=== PATIENT | male | born 1960 | race Caucasian/White ===

== ENCOUNTER → 2017-06-13 | Outpatient (REF) | payer OTHER ==
[2017-06-13 19:44] LABS: ALBUMIN 3.7 GM/DL (3.2-5.2); ALBUMIN/GLOBULIN RATIO 1.28 (1.00-1.93); ALKALINE PHOSPHATASE 81 U/L (45-117); ALT/SGPT 38 U/L (12-78); ANION GAP 6 MEQ/L (8-16); AST/SGOT 17 U/L (15-37); BILIRUBIN,TOTAL 0.5 MG/DL (0.2-1.0); BLOOD UREA NITROGEN 12 MG/DL (7-18); CALCIUM LEVEL 8.8 MG/DL (8.5-10.1); CARBON DIOXIDE LEVEL 27 MEQ/L (21-32); CHLORIDE LEVEL 103 MEQ/L (98-107); CHOLESTEROL LEVEL 250 MG/DL (<200); CREATININE FOR GFR 0.85 MG/DL (0.70-1.30); GLOMERULAR FILTRATION RATE > 60.0 (>56); GLUCOSE, FASTING 106 MG/DL (70-105); POTASSIUM SERUM 4.1 MEQ/L (3.5-5.1); SODIUM LEVEL 136 MEQ/L (136-145); TOTAL PROTEIN 6.6 GM/DL (6.4-8.2); TRIGLYCERIDES LEVEL 319 MG/DL (<150)
== END ==
LOC: M SFHCCAPE 13:18
PROVIDERS: ATTEND Physician Assistant
DX: E78.5 Hyperlipidemia, unspecified (principal); Z12.5 Encounter for screening for malignant neoplasm of prostate

== ENCOUNTER → 2018-03-13 | Outpatient (REF) | payer OTHER ==
[2018-03-13 19:00] LABS: ALBUMIN 3.5 GM/DL (3.2-5.2); ALBUMIN/GLOBULIN RATIO 1.13 (1.00-1.93); ALKALINE PHOSPHATASE 87 U/L (45-117); ALT/SGPT 33 U/L (12-78); ANION GAP 7 MEQ/L (8-16); AST/SGOT 15 U/L (7-37); BILIRUBIN,TOTAL 0.4 MG/DL (0.2-1.0); BLOOD UREA NITROGEN 11 MG/DL (7-18); CALCIUM LEVEL 8.2 MG/DL (8.5-10.1); CARBON DIOXIDE LEVEL 28 MEQ/L (21-32); CHLORIDE LEVEL 108 MEQ/L (98-107); CHOLESTEROL LEVEL 217 MG/DL (<200); CREATININE FOR GFR 0.85 MG/DL (0.70-1.30); GLOMERULAR FILTRATION RATE > 60.0 (>56); GLUCOSE, FASTING 108 MG/DL (70-100); HDL CHOLESTEROL 38 MG/DL (>40); LDL CHOLESTEROL 120.8 MG/DL (<100); NON-HDL-C 179 MG/DL; POTASSIUM SERUM 3.8 MEQ/L (3.5-5.1); SODIUM LEVEL 143 MEQ/L (136-145); TOTAL PROTEIN 6.6 GM/DL (6.4-8.2); TRIGLYCERIDES LEVEL 291 MG/DL (<150)
== END ==
LOC: M SFHCCAPE 07:05
DX: E78.5 Hyperlipidemia, unspecified (principal); I10 Essential (primary) hypertension

== ENCOUNTER → 2018-03-25 | Outpatient (CLI) | payer OTHER | LOC: M CLY 10:44 | DX: M25.562 Pain in left knee (principal) | CPT/HCPCS: 73564 ==

== ENCOUNTER → 2018-09-20 | Outpatient (REF) | payer OTHER ==
[2018-09-20 12:13] LABS: ALBUMIN 3.8 GM/DL (3.2-5.2); ALT/SGPT 36 U/L (12-78); BILIRUBIN,TOTAL 0.4 MG/DL (0.2-1.0); BLOOD UREA NITROGEN 12 MG/DL (7-18); CALCIUM LEVEL 8.3 MG/DL (8.5-10.1); CARBON DIOXIDE LEVEL 30 MEQ/L (21-32); CHLORIDE LEVEL 104 MEQ/L (98-107); CHOLESTEROL LEVEL 274 MG/DL (<200); CREATININE FOR GFR 0.85 MG/DL (0.70-1.30); GLOMERULAR FILTRATION RATE > 60.0 (>56); GLUCOSE, FASTING 110 MG/DL (70-100); HDL CHOLESTEROL 38 MG/DL (>40); LDL CHOLESTEROL 168 MG/DL (<100); NON-HDL-C 236 MG/DL; POTASSIUM SERUM 4.3 MEQ/L (3.5-5.1); SODIUM LEVEL 141 MEQ/L (136-145); TOTAL PROTEIN 6.7 GM/DL (6.4-8.2); TRIGLYCERIDES LEVEL 340 MG/DL (<150)
[2018-09-20 12:16] LABS: HEMOGLOBIN A1c 5.7 %
== END ==
LOC: M SFHCCLAY 09:08
PROVIDERS: ATTEND Family Medicine
DX: I10 Essential (primary) hypertension (principal); R73.01 Impaired fasting glucose; E78.5 Hyperlipidemia, unspecified; Z12.5 Encounter for screening for malignant neoplasm of prostate

== ENCOUNTER → 2019-03-27 | Outpatient (REF) | payer OTHER ==
[2019-03-27 17:06] LABS: ALBUMIN 3.9 GM/DL (3.2-5.2); ALT/SGPT 38 U/L (12-78); BILIRUBIN,TOTAL 0.4 MG/DL (0.2-1.0); BLOOD UREA NITROGEN 16 MG/DL (7-18); CARBON DIOXIDE LEVEL 29 MEQ/L (21-32); CHLORIDE LEVEL 108 MEQ/L (98-107); CHOLESTEROL LEVEL 265 MG/DL (<200); CHOLESTEROL RISK RATIO 7.571 (<5); CREATININE FOR GFR 0.91 MG/DL (0.70-1.30); GLOMERULAR FILTRATION RATE > 60.0 (>56); GLUCOSE, FASTING 108 MG/DL (70-100); HDL CHOLESTEROL 35 MG/DL (>40); NON-HDL-C 230 MG/DL; SODIUM LEVEL 142 MEQ/L (136-145); TOTAL PROTEIN 6.6 GM/DL (6.4-8.2); TRIGLYCERIDES LEVEL 434 MG/DL (<150)
[2019-03-27 17:27] LABS: HEMOGLOBIN A1c 5.8 %
== END ==
LOC: M SFHCCAPE 08:15
PROVIDERS: ATTEND Family Medicine
DX: E78.5 Hyperlipidemia, unspecified (principal); R73.01 Impaired fasting glucose

== ENCOUNTER → 2019-07-02 | Outpatient (REF) | payer OTHER ==
[2019-07-02 16:50] LABS: ALT/SGPT 46 U/L (12-78); BILIRUBIN,TOTAL 0.4 MG/DL (0.2-1.0); BLOOD UREA NITROGEN 13 MG/DL (7-18); CALCIUM LEVEL 8.7 MG/DL (8.5-10.1); CARBON DIOXIDE LEVEL 29 MEQ/L (21-32); CHLORIDE LEVEL 107 MEQ/L (98-107); CHOLESTEROL LEVEL 123 MG/DL (<200); CHOLESTEROL RISK RATIO 3.153 (<5); CREATININE FOR GFR 0.86 MG/DL (0.70-1.30); GLOMERULAR FILTRATION RATE > 60.0 (>56); GLUCOSE, FASTING 98 MG/DL (70-100); HDL CHOLESTEROL 39 MG/DL (>40); LDL CHOLESTEROL 57 MG/DL (<100); NON-HDL-C 84 MG/DL; POTASSIUM SERUM 4.4 MEQ/L (3.5-5.1); SODIUM LEVEL 141 MEQ/L (136-145); TOTAL PROTEIN 6.3 GM/DL (6.4-8.2); TRIGLYCERIDES LEVEL 136 MG/DL (<150)
== END ==
LOC: M SFHCCAPE 07:15
PROVIDERS: ATTEND Family Medicine
DX: E78.5 Hyperlipidemia, unspecified (principal)

== ENCOUNTER → 2019-10-01 | Outpatient (REF) | payer OTHER ==
[2019-10-01 17:23] LABS: ALBUMIN 3.9 GM/DL (3.2-5.2); ALT/SGPT 34 U/L (12-78); BILIRUBIN,TOTAL 0.4 MG/DL (0.2-1.0); BLOOD UREA NITROGEN 12 MG/DL (7-18); CARBON DIOXIDE LEVEL 25 MEQ/L (21-32); CHLORIDE LEVEL 108 MEQ/L (98-107); CHOLESTEROL LEVEL 145 MG/DL (<200); CHOLESTEROL RISK RATIO 3.452 (<5); CREATININE FOR GFR 0.92 MG/DL (0.70-1.30); GLOMERULAR FILTRATION RATE > 60.0 (>56); GLUCOSE, FASTING 112 MG/DL (70-100); HDL CHOLESTEROL 42 MG/DL (>40); LDL CHOLESTEROL 66 MG/DL (<100); NON-HDL-C 103 MG/DL; SODIUM LEVEL 142 MEQ/L (136-145); TOTAL PROTEIN 6.7 GM/DL (6.4-8.2); TRIGLYCERIDES LEVEL 185 MG/DL (<150)
[2019-10-01 17:47] LABS: HEMOGLOBIN A1c 5.7 %
== END ==
LOC: M SFHCCAPE 07:16
PROVIDERS: ATTEND Family Medicine
DX: R73.01 Impaired fasting glucose (principal); E78.5 Hyperlipidemia, unspecified

== ENCOUNTER → 2020-03-11 | Outpatient (REF) | payer OTHER ==
[2020-03-11 11:58] LABS: ALBUMIN 3.6 GM/DL (3.2-5.2); ALT/SGPT 32 U/L (12-78); BILIRUBIN,TOTAL 0.5 MG/DL (0.2-1.0); BLOOD UREA NITROGEN 14 MG/DL (7-18); CALCIUM LEVEL 8.9 MG/DL (8.5-10.1); CARBON DIOXIDE LEVEL 28 MEQ/L (21-32); CHLORIDE LEVEL 108 MEQ/L (98-107); CREATININE FOR GFR 0.78 MG/DL (0.70-1.30); GLOMERULAR FILTRATION RATE > 60.0 (>56); GLUCOSE, FASTING 105 MG/DL (70-100); POTASSIUM SERUM 4.3 MEQ/L (3.5-5.1); SODIUM LEVEL 139 MEQ/L (136-145); TOTAL PROTEIN 6.6 GM/DL (6.4-8.2)
[2020-03-11 12:17] LABS: HEMOGLOBIN A1c 5.8 %
== END ==
LOC: M SFHCCLAY 07:56
PROVIDERS: ATTEND Family Medicine
DX: I10 Essential (primary) hypertension (principal); R73.01 Impaired fasting glucose

== ENCOUNTER → 2020-04-23 | Outpatient (REF) | payer OTHER ==
[2020-05-22 03:20] LABS: BASO % 0.5 % (0.0-1.0); EOS # 0.1 10^3/uL (0.0-0.5); EOS % 0.6 % (0.0-3.0); ERYTHROCYTE SEDIMENTATION RATE 5 mm/hr (0-20); HEMOGLOBIN 14.6 g/dl (13.5-17.5); LYMPH # 2.7 10^3/uL (1.5-5.0); LYMPH % 31.2 % (24.0-44.0); MEAN CORPUSCULAR HEMOGLOBIN 28.4 pg (27.0-33.0); MEAN CORPUSCULAR HGB CONC 33.2 g/dl (32.0-36.5); MEAN CORPUSCULAR VOLUME 85.6 fl (80.0-96.0); MONO # 0.7 10^3/uL (0.0-0.8); MONO % 7.7 % (0.0-5.0); NEUTROPHILS # 5.2 10^3/uL (1.5-8.5); NEUTROPHILS % 59.2 % (36.0-66.0); PLATELET COUNT, AUTOMATED 228 10^3/uL (150-450); RED BLOOD COUNT 5.14 10^6/uL (4.30-6.10); WHITE BLOOD COUNT 8.7 10^3/uL (4.0-10.0)
[2020-05-31 09:19] LABS: ANTINUCLEAR ANTIBODIES DIRECT See Separate Report; Lyme Disease IgG/IgM Antibodie See Separate Report
[2020-06-07 22:45] LABS: BLOOD UREA NITROGEN 10 MG/DL (7-18); C REACTIVE PROTEIN QUANTITATIV < 0.30 MG/DL (0.00-0.30); CREATININE FOR GFR 0.85 MG/DL (0.70-1.30); GLOMERULAR FILTRATION RATE > 60.0 (>56); RHEUMATOID FACTOR QUANT < 10.0 IU/ML (<15.0); URIC ACID 5.8 MG/DL (3.5-7.2)
== END ==
LOC: M LABDRAWC 08:45
PROVIDERS: ATTEND Physician Assistant Surgical
DX: M19.042 Primary osteoarthritis, left hand (principal)

== ENCOUNTER → 2020-09-21 | Outpatient (REF) | payer OTHER ==
[2020-09-21 12:11] LABS: ALBUMIN 3.7 GM/DL (3.2-5.2); ALT/SGPT 35 U/L (12-78); BILIRUBIN,TOTAL 0.5 MG/DL (0.2-1.0); BLOOD UREA NITROGEN 12 MG/DL (7-18); CARBON DIOXIDE LEVEL 28 MEQ/L (21-32); CHLORIDE LEVEL 107 MEQ/L (98-107); CHOLESTEROL LEVEL 159 MG/DL (<200); CHOLESTEROL RISK RATIO 3.975 (<5); CREATININE FOR GFR 0.81 MG/DL (0.70-1.30); GLOMERULAR FILTRATION RATE > 60.0 (>56); GLUCOSE, FASTING 112 MG/DL (70-100); HDL CHOLESTEROL 40 MG/DL (>40); LDL CHOLESTEROL 73 MG/DL (<100); NON-HDL-C 119 MG/DL; POTASSIUM SERUM 4.1 MEQ/L (3.5-5.1); SODIUM LEVEL 139 MEQ/L (136-145); TOTAL PROTEIN 6.5 GM/DL (6.4-8.2); TRIGLYCERIDES LEVEL 229 MG/DL (<150)
== END ==
LOC: M SFHCCLAY 07:02
PROVIDERS: ATTEND Family Medicine
DX: I10 Essential (primary) hypertension (principal); I25.10 Atherosclerotic heart disease of native coronary artery without angina pectoris; E78.5 Hyperlipidemia, unspecified

== ENCOUNTER → 2021-01-03 | Outpatient (CLI) | payer OTHER ==
--- NOTE | 2021-01-03 10:34 | REP ---
INDICATION: LT LEG PAIN SWELLING ? DVT COMPARISON: None. TECHNIQUE: Sandoval scale and color Doppler evaluation left lower extremity using linear high frequency transducer. FINDINGS: Ultrasound examination of the lower extremity deep venous structures from the common femoral vein to the popliteal vein demonstrates normal compressibility flow and wave patterns in response to respiration and augmentation. There is no evidence for deep venous thrombosis. Complex collection in the popliteal fossa measuring 3.5 x 3.1 x 1.4 cm consistent with Cruz's cyst. IMPRESSION: No evidence for deep venous thrombosis. 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 <Electronically signed by Bradley Rajput > 01/03/21 [id number]
== END ==
LOC: M RAD 09:55
PROVIDERS: ATTEND Orthopaedic Surgery
DX: M79.605 Pain in left leg (principal)

== ENCOUNTER → 2021-03-25 | Outpatient (REF) | payer OTHER ==
[2021-03-25 11:33] LABS: BASO % 0.4 % (0.0-1.0); EOS # 0.1 10^3/uL (0.0-0.5); EOS % 0.8 % (0.0-3.0); HEMATOCRIT 44.4 % (42.0-52.0); HEMOGLOBIN 14.7 g/dl (13.5-17.5); LYMPH # 2.9 10^3/uL (1.5-5.0); LYMPH % 36.8 % (24.0-44.0); MEAN CORPUSCULAR HEMOGLOBIN 28.5 pg (27.0-33.0); MEAN CORPUSCULAR HGB CONC 33.1 g/dl (32.0-36.5); MONO # 0.6 10^3/uL (0.0-0.8); MONO % 8.2 % (2.0-8.0); NEUTROPHILS # 4.2 10^3/uL (1.5-8.5); NEUTROPHILS % 53.3 % (36.0-66.0); PLATELET COUNT, AUTOMATED 244 10^3/uL (150-450); RED BLOOD COUNT 5.16 10^6/uL (4.30-6.10); WHITE BLOOD COUNT 7.8 10^3/uL (4.0-10.0)
[2021-03-25 12:13] LABS: ALBUMIN 3.7 GM/DL (3.2-5.2); ALT/SGPT 43 U/L (12-78); BILIRUBIN,TOTAL 0.5 MG/DL (0.2-1.0); BLOOD UREA NITROGEN 13 MG/DL (7-18); CALCIUM LEVEL 8.6 MG/DL (8.5-10.1); CARBON DIOXIDE LEVEL 29 MEQ/L (21-32); CHLORIDE LEVEL 107 MEQ/L (98-107); CHOLESTEROL LEVEL 143 MG/DL (<200); CHOLESTEROL RISK RATIO 3.177 (<5); CREATININE FOR GFR 0.75 MG/DL (0.70-1.30); GLOMERULAR FILTRATION RATE > 60.0 (>56); GLUCOSE, FASTING 110 MG/DL (70-100); HDL CHOLESTEROL 45 MG/DL (>40); LDL CHOLESTEROL 76 MG/DL (<100); NON-HDL-C 98 MG/DL; POTASSIUM SERUM 4.2 MEQ/L (3.5-5.1); SODIUM LEVEL 140 MEQ/L (136-145); TOTAL PROTEIN 6.6 GM/DL (6.4-8.2); TRIGLYCERIDES LEVEL 112 MG/DL (<150)
[2021-03-25 12:46] LABS: HEMOGLOBIN A1c 5.9 %
== END ==
LOC: M SFHCCLAY 08:42
PROVIDERS: ATTEND Family Medicine
DX: I10 Essential (primary) hypertension (principal); R73.01 Impaired fasting glucose; E78.5 Hyperlipidemia, unspecified

== ENCOUNTER → 2021-07-20 | Outpatient (CLI) | payer OTHER ==
[~2021-07-20] MED LIST: ASPI81TA26 PO; CLOP75TA2 PO; LOSA25TA14 PO; METO1TAB7 PO; MULTTAB86 PO; OMEG10002 PO; ROSU40TA4 PO; VITA500C19 PO
== END ==
LOC: M LABSMTC 09:46
PROVIDERS: ATTEND Anesthesiology
DX: Z01.818 Encounter for other preprocedural examination (principal); Z11.52 Encounter for screening for COVID-19

== ENCOUNTER 2021-07-25 08:25 | Day surgery (SDC) | payer OTHER ==
[~2021-07-25] VITALS: Ht 175.3 cm; Wt 123.8 kg
[~2021-07-25 08:25] MED LIST changes: +NS 1,000 ML IV ONE
--- OUTSIDE RECORDS SUMMARY | 2021-07-25 08:28 | CCD | Continuity of Care Document ---
Author Author Fei LOVE M.D. Organization Unknown Address [address] [place] [address] Phone [phone] Care Team Providers Care Corporate Ethics Officer Name Role Phone Cameron Nobles MD [facility] [phone] Problems Active Problems Provider Date Screening for malignant neoplasm of colon Marija Lorenzo Onset: 10/22/2013 Social History Type Date Description Comments Sex Unknown ETOH Use Occasionally Tobacco Use Start: Unknown End: Unknown Patient is a former smoker Allergies, Adverse Reactions, Alerts Active Allergies Criticality Reaction | Severity Comments Date Penicillin Unable to assess criticality Rash 10/22/2013 Medications Active Medications SIG Qnty Indications Ordering Provide r Date Suprep Bowel Prep Kit 17.5-3.13-1.6GM/177ML Solution use as directed 354ml Ishmael Love M.D. 05/19/2021 Sildenafil Citrate 100mg Tablets Take 1 Tablet By Mouth Daily as Needed For 10 Days Unkn own Losartan Potassium 25mg Tablets 764760 Metoprolol Succinate ER 50mg Tablets ER 24HR 203814 Rosuvastatin Calcium 40mg Tablets 981757 Immunizations Description No Information Available Vital Signs Date Vital Result Comment 05/19/2021 3:26pm Height 69 inches 5'9" Weight 268.00 lb BP Systolic 151 mmHg BP Diastolic 92 mmHg Heart Rate 64 /min BMI (Body Mass Index) 39.6 kg/m2 Weight 121.565 kg Body Temperature 97.2 F 12/29/2014 3:08pm Height 69 inches 5'9" Weight 251.00 lb BP Systolic 134 mmHg BP Diastolic 87 mmHg Heart Rate 99 /min BMI (Body Mass Index) 37.1 kg/m2 Weight 113.854 kg Results Description No Information Available Procedures Description No Information Available Medical Devices Description No Information Available Encounters Description No Information Available Assessments Date Code Description Provider 05/19/2021 Z86.010 History of colonic polyp Ishmael Love M.D. Plan of Treatment Future Appointment(s):* 07/25/2021 8:45 am - Ishmael Love M.D. 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 Colonoscopy was normal in 2014. No c/o abdominal pain, change in bowel habits, or rectal bleeding. Experiencing no pain. Colorectal screen due to personal history of polyps. Plan:1.Schedule patient for Colonoscopy. 2. Informed consent given.3. Advised to stop asa, plavix,and anticoagulation 3 to 7 days prior to the procedures. Functional Status Description No Information Available Mental Status Description No Information Available Referrals Description No Information Available
--- OUTSIDE RECORDS SUMMARY | 2021-07-25 08:28 | CCD | Continuity of Care Document ---
Author Author Fei LOVE M.D. Organization Unknown Address [address] [place] [address] Phone [phone] Care Team Providers Care Mixer Driver Name Role Phone Cameron Nobles MD [facility] [phone] Problems Active Problems Provider Date Screening for [...] Days Unkn own Losartan Potassium 25mg Tablets 482631 Metoprolol Succinate ER 50mg Tablets ER 24HR 879855 Rosuvastatin Calcium 40mg Tablets 497998 Immunizations Description No Information Available Vital Signs [...] kg Results Description No Information Available Procedures Date Code Description Status 05/19/2021 88653 Office/Outpatient New Low MDM 30 -44 Minutes Completed Medical Devices Description No Information Available Encounters Type Date Location Provider Dx Diagnosis Office Visit 05/19/2021 3:00p Main Office Ishmael Love M.D. Z 86.010 Personal history of colonic polyps Assessments Date Code Description Provider 05/19/2021 Z86.010 History of colonic polyp Ishmael Love M.D. Plan of Treatment Future Appointment(s):* 07/25/2021 8:45 am - Ishamel Love M.D. at Main Office 05/19/2021 - [...]
--- OUTSIDE RECORDS SUMMARY | 2021-07-25 08:29 | CCD ---
Author Author [facility] Organization [facility] Address Unknown Phone Unavailable Care Team Providers Care Damage Prevention Coordinator Name Role Phone Jennifer CALVERT DO Unavailable Unavailable HUIZENGAJennifer DO Unavailable Unavailable KIMOIZENGAJennifer DO Unavailable Unavailable HUIZENGA D RODGER DO Unavailable Unavailable HUIZENGAJennifer DO Unavailable Unavailable HUIZENGAJennifer DO Unavailable Unavailable HUIZENGAJennifer DO Unavailable Unavailable HUIZENGAJennifer DO Unavailable Unavailable KIMOIZENGAJennifer DO Unavailable Unavailable KIMOIZENGAJennifer DO Unavailable Unavailable KIMOIZENGAJennifer DO Unavailable Unavailable KIMOIZENGAJennifer DO Unavailable Unavailable KIMOIZENGAJennifer DO Unavailable Unavailable KIMOIZENGAJennifer DO Unavailable Unavailable KIMOIZENGAJennifer DO Unavailable Unavailable KIMOIZENGA D RODGER DO Unavailable Unavailable KIMOIZENGA D RODGER DO Unavailable Unavailable KIMOIZENGA D RODGER DO Unavailable Unavailable KIMOIZENGA, Jennifer SOARES DO Unavailable Unavailable HUIZENGA, Jennifer SOARES DO Unavailable Unavailable HUIZENGA, Jennifer SOARES DO Unavailable Unavailable HUIZENGA, Jennifer SOARES DO Unavailable Unavailable HUIZENGA, Jennifer SOARES DO Unavailable Unavailable HUIZENGA, Jennifer SOARES DO Unavailable Unavailable HUIZENGA, Jennifer SOARES DO Unavailable Unavailable HUIZENGA, Jennifer SOARES DO Unavailable Unavailable HUIZENGA, Jennifer SOARES DO Unavailable Unavailable HUIZENGA, Jennifer SOARES DO Unavailable Unavailable HUIZENGA, Jennifer SOARES DO Unavailable Unavailable HUIZENGA, Jennifer SOARES DO Unavailable Unavailable HUIZENGA, Jennifer SOARES DO Unavailable Unavailable HUIZENGA, Jennifer SOARES DO Unavailable Unavailable HUIZENGA, Jennifer SOARES DO Unavailable Unavailable HUIZENGA, Jennifer SOARES DO Unavailable Unavailable HUIZENGA, Jennifer SOARES DO Unavailable Unavailable HUIZENGA, Jennifer SOARES DO Unavailable Unavailable HUIZENGA, Jennifer SOARES DO Unavailable Unavailable HUIZENGA, Jennifer SOARES DO Unavailable Unavailable HUIZENGA, Jennifer SOARES DO Unavailable Unavailable HUIZENGA, Jennifer SOARES DO Unavailable Unavailable HUIZENGA, Jennifer SOARES DO Unavailable Unavailable HUIZENGA, Jennifer SOARES DO Unavailable Unavailable HUIZENGA, Jennifer SOARES DO Unavailable Unavailable HUIZENGA, Jennifer SOARES DO Unavailable Unavailable HUIZENGA, Jennifer SOARES DO Unavailable Unavailable HUIZENGA, Jennifer SOARES DO Unavailable Unavailable HUIZENGA, Jennifer SOARES DO Unavailable Unavailable HUIZENGA, Jennifer SOARES DO Unavailable Unavailable HUIZENGA, Jennifer SOARES DO Unavailable Unavailable HUIZENGA, Jennifer SOARES DO Unavailable Unavailable HUIZENGA, Jennifer SOARES DO Unavailable Unavailable HUIZENGA, Jennifer SOARES DO Unavailable Unavailable HUIZENGA, Jennifer SOARES DO Unavailable Unavailable HUIZENGA, Jennifer SOARES DO Unavailable Unavailable HUIZENGA, Jennifer SOARES DO Unavailable Unavailable HUIZENGA, Jennifer SOARES DO Unavailable Unavailable HUIZENGA, Jennifer SOARES DO Unavailable Unavailable HUIZENGA, Jennifer SOARES DO Unavailable Unavailable HUIZENGA, Jennifer SOARES DO Unavailable Unavailable HUIZENGA, Jennifer SOARES DO Unavailable Unavailable HUIZENGA, Jennifer SOARES DO Unavailable Unavailable HUIZENGA, Jennifer SOARES DO Unavailable Unavailable HUIZENGA, Jennifer SOARES DO Unavailable Unavailable HUIZENGA, Jennifer SOARES DO Unavailable Unavailable HUIZENGA, D RODGER DO Unavailable Unavailable HUIZENGA, D RODGER DO Unavailable Unavailable HUIZENGA, D RODGER DO Unavailable Unavailable HUIZENGA, D RODGER DO Unavailable Unavailable HUIZENGA, D RODGER DO Unavailable Unavailable HUIZENGA, D RODGER DO Unavailable Unavailable HUIZENGA, D RODGER DO Unavailable Unavailable HUIZENGA, D RODGER DO Unavailable Unavailable HUIZENGA, D RODGER DO Unavailable Unavailable HUIZENGA, D RODGER DO Unavailable Unavailable HUIZENGA, D RODGER DO Unavailable Unavailable HUIZENGA, D RODGER DO Unavailable Unavailable HUIZENGA, D RODGER DO Unavailable Unavailable Rashid Love MD Unavailable Unavailable Rashid Love MD Unavailable Unavailable Rashid Love MD Unavailable Unavailable Rashid Love MD Unavailable Unavailable Rashid Love MD Unavailable Unavailable Rashid Love MD Unavailable Unavailable Rashid Love MD Unavailable Unavailable Rashid Love MD Unavailable Unavailable Rashid Love MD Unavailable Unavailable Rashid Love MD Unavailable Unavailable Rashid Love MD Unavailable Unavailable Rashid Love MD Unavailable Unavailable Rashid Love MD Unavailable Unavailable Rashid Love MD Unavailable Unavailable Rashid Love MD Unavailable Unavailable Rashid Love MD Unavailable Unavailable Rashid Love MD Unavailable Unavailable Rashid Love MD Unavailable Unavailable Rashid Love MD Unavailable Unavailable Rashid Love MD Unavailable Unavailable Rashid Love MD Unavailable Unavailable Rashid Love MD Unavailable Unavailable Rashid Love MD Unavailable Unavailable Rashid Love MD Unavailable Unavailable Rashid Love MD Unavailable Unavailable Rashid Love MD Unavailable Unavailable Rashid Love MD Unavailable Unavailable Rashid Love MD Unavailable Unavailable Rashid Love MD Unavailable Unavailable Rashid Love MD Unavailable Unavailable Rashid Love MD Unavailable Unavailable aRshid Love MD Unavailable Unavailable Rashid Love MD Unavailable Unavailable Rashid Love MD Unavailable Unavailable Rashid Love MD Unavailable Unavailable Rashid Love MD Unavailable Unavailable Rashid Love MD Unavailable Unavailable Rashid Love MD Unavailable Unavailable Rashid Love MD Unavailable Unavailable Rashid Love MD Unavailable Unavailable Rashid Love MD Unavailable Unavailable Rashid Love MD Unavailable Unavailable Rashid Love MD Unavailable Unavailable Rashid Love MD Unavailable Unavailable Rashid Love MD Unavailable Unavailable Rashid Love MD Unavailable Unavailable Rashid Love MD Unavailable Unavailable Rashid Love MD Unavailable Unavailable Rashid Love MD Unavailable Unavailable Rashid Love MD Unavailable Unavailable PETROFF, MIRIAM PA Unavailable Unavailable PETROFF, MIRIAM PA Unavailable Unavailable PETROFF, MIRIAM PA Unavailable Unavailable PETROFF, MIRIAM PA Unavailable Unavailable PETROFF, MIRIAM PA Unavailable Unavailable PETROFF, MIRIAM PA Unavailable Unavailable PETROFF, MIRIAM PA Unavailable Unavailable PETROFF, MIRIAM PA Unavailable Unavailable Mandappa, Isadora CASAC Unavailable Unavailable Mandappa, Isadora CASAC Unavailable Unavailable Mandappa, Isadora CASAC Unavailable Unavailable Mandappa, Isadora CASAC Unavailable Unavailable Boogie Rice MD Unavailable Unavailable RiceBoogie MD Unavailable Unavailable Rice, Boogie Jenkins MD Unavailable Unavailable RiceBoogie MD Unavailable Unavailable RiceBoogie MD Unavailable Unavailable Rice, Boogie Jenkins MD Unavailable Unavailable RiceBoogie MD Unavailable Unavailable IrceBoogie MD Unavailable Unavailable RiceBoogie MD Unavailable Unavailable RiceBoogie amos MD Unavailable Unavailable RiceBoogie amos MD Unavailable Unavailable RiceBoogie amos MD Unavailable Unavailable RiceBoogie amos MD Unavailable Unavailable RiceBoogie amos MD Unavailable Unavailable RiceBoogie amos MD Unavailable Unavailable Boogie Rice MD Unavailable Unavailable RiceBoogie amos MD Unavailable Unavailable RiceBoogie amos MD Unavailable Unavailable RiceBoogie amos MD Unavailable Unavailable RiceBoogie MD Unavailable Unavailable RiceBoogie MD Unavailable Unavailable RiceBoogie MD Unavailable Unavailable RiceBoogie amos MD Unavailable Unavailable RiceBoogie amos MD Unavailable Unavailable RiceBoogie amos MD Unavailable Unavailable RiceBoogie amos MD Unavailable Unavailable RiceBoogie amos MD Unavailable Unavailable RiceBoogie amos MD Unavailable Unavailable Boogie Rice MD Unavailable Unavailable Boogie Rice MD Unavailable Unavailable Boogie Rice MD Unavailable Unavailable Boogie Rice MD Unavailable Unavailable Boogie Rice MD Unavailable Unavailable RiceBoogie amos MD Unavailable Unavailable RiceBoogie amos MD Unavailable Unavailable RiceBoogie amos MD Unavailable Unavailable RiceBoogie amos MD Unavailable Unavailable RiceBoogie amos MD Unavailable Unavailable Rice, Boogie Jenkins MD Unavailable Unavailable Rice, Boogie Jenkins MD Unavailable Unavailable Rice, Boogie Jenkins MD Unavailable Unavailable Rice, Boogie Jenkins MD Unavailable Unavailable Rice, Boogie Jenkins MD Unavailable Unavailable Rice, Boogie Jenkins MD Unavailable Unavailable Rice, Boogie Jenkins MD Unavailable Unavailable Rice, Boogie Jenkins MD Unavailable Unavailable Rice, Boogie Jenkins MD Unavailable Unavailable Rice, Boogie Jenkins MD Unavailable Unavailable Rice, Boogie Jenkins MD Unavailable Unavailable Rice, Boogie Jenkins MD Unavailable Unavailable Fons, M Veena ICU REGISTERED NURSE Unavailable Unavailable Fons, M Veena ICU REGISTERED NURSE Unavailable Unavailable Fons, M Veena ICU REGISTERED NURSE Unavailable Unavailable Fons, M Veena ICU REGISTERED NURSE Unavailable Unavailable Fons, M Veena ICU REGISTERED NURSE Unavailable Unavailable Fons, M Veena ICU REGISTERED NURSE Unavailable Unavailable Fons, M Veena ICU REGISTERED NURSE Unavailable Unavailable Fons, M Veena ICU REGISTERED NURSE Unavailable Unavailable Fons, M Veena ICU REGISTERED NURSE Unavailable Unavailable Fons, M Veena ICU REGISTERED NURSE Unavailable Unavailable Fons, M Veena ICU REGISTERED NURSE Unavailable Unavailable Fons, M Veena ICU REGISTERED NURSE Unavailable Unavailable Fons, M Veena ICU REGISTERED NURSE Unavailable Unavailable Fons, M Veena ICU REGISTERED NURSE Unavailable Unavailable Fons, M Veena ICU REGISTERED NURSE Unavailable Unavailable Fons, M Veena ICU REGISTERED NURSE Unavailable Unavailable Fons, M Veena ICU REGISTERED NURSE Unavailable Unavailable Fons, M Veena ICU REGISTERED NURSE Unavailable Unavailable Fons, M Veena ICU REGISTERED NURSE Unavailable Unavailable Fons, M Veena ICU REGISTERED NURSE Unavailable Unavailable Fons, M Veena ICU REGISTERED NURSE Unavailable Unavailable Fons, M Veena ICU REGISTERED NURSE Unavailable Unavailable Fons, M Veena ICU REGISTERED NURSE Unavailable Unavailable Fons, M Veena ICU REGISTERED NURSE Unavailable Unavailable Fons, M Veena ICU REGISTERED NURSE Unavailable Unavailable Fons, M Veena ICU REGISTERED NURSE Unavailable Unavailable Fons, M Veena ICU REGISTERED NURSE Unavailable Unavailable Fons, M Veena ICU REGISTERED NURSE Unavailable Unavailable Fons, M Veena ICU REGISTERED NURSE Unavailable Unavailable Fons, M Veena ICU REGISTERED NURSE Unavailable Unavailable Fons, M Veena ICU REGISTERED NURSE Unavailable Unavailable Fons, M Veena ICU REGISTERED NURSE Unavailable Unavailable Fons, M Veena ICU REGISTERED NURSE Unavailable Unavailable Fons, M Veena ICU REGISTERED NURSE Unavailable Unavailable Fons, M Veena ICU REGISTERED NURSE Unavailable Unavailable Fons, M Veena ICU REGISTERED NURSE Unavailable Unavailable Fons, M Veena ICU REGISTERED NURSE Unavailable Unavailable Fons, M Veena ICU REGISTERED NURSE Unavailable Unavailable Fons, M Veena ICU REGISTERED NURSE Unavailable Unavailable Fons, M Veena ICU REGISTERED NURSE Unavailable Unavailable Fons, M Veena ICU REGISTERED NURSE Unavailable Unavailable Fons, M Veena ICU REGISTERED NURSE Unavailable Unavailable Fons, M Veena ICU REGISTERED NURSE Unavailable Unavailable Fons, M Veena ICU REGISTERED NURSE Unavailable Unavailable Fons, M Veena ICU REGISTERED NURSE Unavailable Unavailable Fons, M Veena ICU REGISTERED NURSE Unavailable Unavailable Fons, M Veena ICU REGISTERED NURSE Unavailable Unavailable Fons, M Veena ICU REGISTERED NURSE Unavailable Unavailable Fons, M Veena ICU REGISTERED NURSE Unavailable Unavailable Fons, M Veena ICU REGISTERED NURSE Unavailable Unavailable Fons, M Veena ICU REGISTERED NURSE Unavailable Unavailable Fons, M Veena ICU REGISTERED NURSE Unavailable Unavailable Fons, M Veena ICU REGISTERED NURSE Unavailable Unavailable Jepma, W Conor DO Unavailable Unavailable Jepma, W Conor DO Unavailable Unavailable Jepma, W Conor DO Unavailable Unavailable Jepma, W Conor DO Unavailable Unavailable Jepma, W Conor DO Unavailable Unavailable Jepma, W Conor DO Unavailable Unavailable Jepma, W Conor DO Unavailable Unavailable Jepma, W Conor DO Unavailable Unavailable Jepma, W Conor DO Unavailable Unavailable Jepma, W Conor DO Unavailable Unavailable Jepma, W Conor DO Unavailable Unavailable Jepma, W Conor DO Unavailable Unavailable Jepma, W Conor DO Unavailable Unavailable Jepma, W Conor DO Unavailable Unavailable Jepma, W Conor DO Unavailable Unavailable Jepma, W Conor DO Unavailable Unavailable Jepma, W Conor DO Unavailable Unavailable Jepma, W Conor DO Unavailable Unavailable Jepma, W Conor DO Unavailable Unavailable Jepma, W Conor DO Unavailable Unavailable Jepma, W Conor DO Unavailable Unavailable Jepma, W Conor DO Unavailable Unavailable Jepma, W Conor DO Unavailable Unavailable Jepma, W Conor DO Unavailable Unavailable Jepma, W Conor DO Unavailable Unavailable Jepma, W Conor DO Unavailable Unavailable Jepma, W Conor DO Unavailable Unavailable Jepma, W Conor DO Unavailable Unavailable Jepma, W Conor DO Unavailable Unavailable Jepma, W Conor DO Unavailable Unavailable Jepma, W Conor DO Unavailable Unavailable Jepma, W Conor DO Unavailable Unavailable Jepma, W Conor DO Unavailable Unavailable Jepma, W Conor DO Unavailable Unavailable Jepma, W Conor DO Unavailable Unavailable Jepma, W Conor DO Unavailable Unavailable Jepma, W Conor DO Unavailable Unavailable Jepma, W Conor DO Unavailable Unavailable Jepma, W Conor DO Unavailable Unavailable Jepma, W Conor DO Unavailable Unavailable Jepma, W Conor DO Unavailable Unavailable Jepma, W Conor DO Unavailable Unavailable Jepma, W Conor DO Unavailable Unavailable Jepma, W Conor DO Unavailable Unavailable Jepma, W Conor DO Unavailable Unavailable Jepma, W Conor DO Unavailable Unavailable Jepma, W Conor DO Unavailable Unavailable Jepma, W Conor DO Unavailable Unavailable Jepma, W Conor DO Unavailable Unavailable Jepma, W Conor DO Unavailable Unavailable Jepma, W Conor DO Unavailable Unavailable Jepma, W Conor DO Unavailable Unavailable Jepma, W Conor DO Unavailable Unavailable Jepma, W Conor DO Unavailable Unavailable Jepma, W Conor DO Unavailable Unavailable Jepma, W Conor DO Unavailable Unavailable Omar Landon MD Unavailable Unavailable Omar Landon MD Unavailable Unavailable Omar Landon MD Unavailable Unavailable Omar Landon MD Unavailable Unavailable Omar Landon MD Unavailable Unavailable Omar Landon MD Unavailable Unavailable Omar Landon MD Unavailable Unavailable Omar Landon MD Unavailable Unavailable Omar Landon MD Unavailable Unavailable Omar Landon MD Unavailable Unavailable Omar Landon MD Unavailable Unavailable Omar Landon MD Unavailable Unavailable Omar Landon MD Unavailable Unavailable Omar Landon MD Unavailable Unavailable Omar Landon MD Unavailable Unavailable Omar Landon MD Unavailable Unavailable Omar Landon MD Unavailable Unavailable Omar Landon MD Unavailable Unavailable Omar Landon MD Unavailable Unavailable Omar Landon MD Unavailable Unavailable Omar Landon MD Unavailable Unavailable Omar Landon MD Unavailable Unavailable Omar Landon MD Unavailable Unavailable Omar Landon MD Unavailable Unavailable Omar Landon MD Unavailable Unavailable Omar Landon MD Unavailable Unavailable Omar Landon MD Unavailable Unavailable Omar Landon MD Unavailable Unavailable Omar Landon MD Unavailable Unavailable Omar Landon MD Unavailable Unavailable Omar Landon MD Unavailable Unavailable Omar Landon MD Unavailable Unavailable Omar Landon MD Unavailable Unavailable Omar Landon MD Unavailable Unavailable Omar Landon MD Unavailable Unavailable Omar Landon MD Unavailable Unavailable Omar Landon MD Unavailable Unavailable Omar Landon MD Unavailable Unavailable Omar Landon MD Unavailable Unavailable Omar Landon MD Unavailable Unavailable Omar Landon MD Unavailable Unavailable Omar Landon MD Unavailable Unavailable Omar Landon MD Unavailable Unavailable Omar Landon MD Unavailable Unavailable Omar Landon MD Unavailable Unavailable Omar Landon MD Unavailable Unavailable Omar Landon MD Unavailable Unavailable Omar Landon MD Unavailable Unavailable Omar Landon MD Unavailable Unavailable Omar Landon MD Unavailable Unavailable Omar Landon MD Unavailable Unavailable Omar Landon MD Unavailable Unavailable Omar Landon MD Unavailable Unavailable Omar Landon MD Unavailable Unavailable Omar Landon MD Unavailable Unavailable Omar Landon MD Unavailable Unavailable Omar Landon MD Unavailable Unavailable Omar Landon MD Unavailable Unavailable Omar Landon MD Unavailable Unavailable Omar Landon MD Unavailable Unavailable Omar Landon MD Unavailable Unavailable Omar Landon MD Unavailable Unavailable Omar Landon MD Unavailable Unavailable Omar Landon MD Unavailable Unavailable Omar Landon MD Unavailable Unavailable Omar Landon MD Unavailable Unavailable Omar Landon MD Unavailable Unavailable Omar Landon MD Unavailable Unavailable Omar Landon MD Unavailable Unavailable Omar Landon MD Unavailable Unavailable Omar Landon MD Unavailable Unavailable Omar Landon MD Unavailable Unavailable Omar Landon MD Unavailable Unavailable Omar Landon MD Unavailable Unavailable Omar Landon MD Unavailable Unavailable Omar Landon MD Unavailable Unavailable Omar Landon MD Unavailable Unavailable Omar Landon MD Unavailable Unavailable Omar Landon MD Unavailable Unavailable Omar Landon MD Unavailable Unavailable Omar Landon MD Unavailable Unavailable Omar Landon MD Unavailable Unavailable Omar Landon MD Unavailable Unavailable Omar Landon MD Unavailable Unavailable Omar Landon MD Unavailable Unavailable Omar Landon MD Unavailable Unavailable Omar Landon MD Unavailable Unavailable Omar Landon MD Unavailable Unavailable Omar Landon MD Unavailable Unavailable Omar Landon MD Unavailable Unavailable Omar Landon MD Unavailable Unavailable Omar Landon MD Unavailable Unavailable Dipesh, Omar Frazier MD Unavailable Unavailable Dipesh, R Freddie NICOLAS Unavailable Unavailable Dipesh, R Freddie NICOLAS Unavailable Unavailable Dipesh, R Freddie NICOLAS Unavailable Unavailable Dipesh, R Freddie NICOLAS Unavailable Unavailable Dipesh, R Freddie NICOLAS Unavailable Unavailable Dipesh, R Freddie NICOLAS Unavailable Unavailable Dipesh, R Freddie NICOLAS Unavailable Unavailable Dipesh, R Freddie MD Unavailable Unavailable Re-disclosure Warning The records that you are about to access may contain information from federally-assisted alcohol or drug abuse programs. If such information is present, then the following federally mandated warning applies: This information has been disclosed to you from records protected by federal confidentiality rules (42 CFR part 2). The federal rules prohibit you from making any further disclosure of this information unless further disclosure is expressly permitted by the written consent of the person to whom it pertains or as otherwise permitted by 42 CFR part 2. A general authorization for the release of medical or other information is NOT sufficient for this purpose. The Federal rules restrict any use of the information to criminally investigate or prosecute any alcohol or drug abuse patient.The records that you are about to access may contain highly sensitive health information, the redisclosure of which is protected by Article 27-F of the [facility] Public Health law. If you continue you may have access to information: Regarding HIV / AIDS; Provided by facilities licensed or operated by the [facility] Office of Mental Health; or Provided by the [facility] Office for People With Developmental Disabilities. If such information is present, then the following [facility] mandated warning applies: This information has been disclosed to you from confidential records which are protected by state law. State law prohibits you from making any further disclosure of this information without the specific written consent of the person to whom it pertains, or as otherwise permitted by law. Any unauthorized further disclosure in violation of state law may result in a fine or skilled nursing sentence or both. A general authorization for the release of medical or other information is NOT sufficient authorization for further disc losure. Family History Family Member Name Family Member Gender Family Member Status Date o f Status Description Data Source(s) Unknown Male Problem [facility] ([facility] Unknown Male Problem [facility] ([facility]) Unknown Male Problem [facility] ([facility], ) Encounters Encounter Providers Location Date Indications Data Source(s ) Outpatient Attender: Ishmael Love MD Main Office 05/19/2021 03:00:00 PM EDT [facility] ([facility]) Unknown [id number] [facility] [address] 04/22/2021 12:00:00 AM EDT eCW1 ([facility]) Outpatient Attender: Veena FUNGYO-SJPChintanYO 09:34:52 AM EDT - 03/29/2021 09:54:37 AM EDT [facility] [id number] [facility] [facility] [address] 03/28/2021 12:00:00 AM EDT eCW1 ([facility]) Outpatient Attender: Freddie PIRESeferrer: RODGER FOUNTAIN DO 02/03/2021 07:47:08 PM EDT [facility] Recurring Patient Referrer: Isadora Mandappa CASAC 02/03/2021 09:35:20 AM EDT [facility] Recurring Patient Referrer: Isadora Mandappa CASAC 02/03/2021 09:30:27 AM EDT [facility] Recurring Patient Referrer: Isadora Mandappa CASAC 02/03/2021 07:24:14 AM EDT [facility] Recurring Patient Referrer: Isadora Mandappa CASAC 01/20/2021 11:03:24 AM EDT [facility] Outpatient [id number] [facility] [facility] [address] 09/23/2020 12:00:00 AM EST eCW1 ([facility]) Outpatient Attender: Veena FUNGYO-SJPChintanYO 0 12:00:00 AM EST - 08/31/2020 01:36:09 PM EST [facility] Outpatient Attender: Gregory Rice MD Physical Therapy 06/03/2020 0 9:00:00 AM EDT [facility] ([facility]) Emergency Attender: MIRIAM TURPIN Ismaelerrer: Conor Vera DO EMERGENCY ROOM-ER 09/06/2019 03:01:00 PM EST - 09/06/2019 04:50:00 PM [facility] Patient discharged. Immunizations Vaccine Date Status Description Data Source(s) COVID-19 dose #2 given elsewhere Unspecified 10/28/2020 07:1 0:00 AM EST completed eCW1 ([facility]) COVID-19 dose #2 given elsewhere Unspecified 10/28/2020 07:1 0:00 AM EST completed eCW1 ([facility]) COVID-19 VACCINE Moderna 09/30/2020 12:00:00 AM EST completed [facility] Vaccine Series Complete: NOThis Data was Submitted to [facility] Via [facility]. Medications Medication Brand Name Start Date Product Form Dose Route Admi nistrative Instructions Pharmacy Instructions Status Indications Reaction Description Data Source(s) 50 mg 06/27/2021 12:00:00 AM EDT tablet extended release 24 hr 30 TAKE ONE TABLET BY MOUTH EVERY DAY TAKE ONE TABLET BY MOUTH EVERY DAY SOLD: 07/02/2021 [facility] SUPREP BOWEL PREP KIT 17.5-3.13-1.6 gram SODIUM, POTASSIUM,M AG SULFATES 05/20/2021 12:00:00 AM EDT recon soln 354 USE DIRECTED USE DIRECTED SOLD: 05/29/2021 [facility] Suprep Bowel Prep Kit Suprep Bowel Prep Kit 05/19/2021 12:00:00 AM EDT active MEDENT ([facility]) 60 mcg (15 mcg x 4)/0.5 mL 05/19/2021 12:00:00 AM EDT suspen erin 0 INJECT DIRECTED INJECT DIRECTED SOLD: 05/19/2021 [facility] . UNIT 05/19/2021 12:00:00 AM EDT Injectable 1 AD MIN FEE ADMIN FEE SOLD: 05/19/2021 [facility] 100 mg 04/24/2021 12:00:00 AM EDT tablet 8 TAKE 1 TABLET BY MOUTH DAILY NEEDED FOR 10 DAYS TAKE 1 TABLET BY MOUTH DAILY NEEDED FOR 10 DAYS KWAKU [facility] 50 mg 01/20/2021 12:00:00 AM EDT tablet extended release 24 hr 30 TAKE ONE TABLET BY MOUTH EVERY DAY TAKE ONE TABLET BY MOUTH EVERY DAY SOLD: 01/23/2021 [facility] 50 mg 01/20/2021 12:00:00 AM EDT tablet extended release 24 hr 30 TAKE ONE TABLET BY MOUTH EVERY DAY TAKE ONE TABLET BY MOUTH EVERY DAY SOLD: 04/22/2021 [facility] 50 mg 01/20/2021 12:00:00 AM EDT tablet extended release 24 hr 30 TAKE ONE TABLET BY MOUTH EVERY DAY TAKE ONE TABLET BY MOUTH EVERY DAY SOLD: 03/25/2021 [facility] 50 mg 01/20/2021 12:00:00 AM EDT tablet extended release 24 hr 30 TAKE ONE TABLET BY MOUTH EVERY DAY TAKE ONE TABLET BY MOUTH EVERY DAY SOLD: 02/22/2021 [facility] Rosuvastatin calcium 40 MG Oral Tablet ROSUVASTATIN CALCIUM 01/20/2021 12:00:00 AM EDT tablet 30 TAKE ONE TABLET BY MOUTH MELANIE RY DAY TAKE ONE TABLET BY MOUTH EVERY DAY SOLD: 05/29/2021 [facility] 25 mg 01/20/2021 12:00:00 AM EDT tablet 90 TAKE ONE TABLET BY MOUTH EVERY DAY TAKE ONE TABLET BY MOUTH EVERY DAY SOLD: 01/23/2021 [facility] 25 mg 01/20/2021 12:00:00 AM EDT tablet 90 TAKE ONE TABLET BY MOUTH EVERY DAY TAKE ONE TABLET BY MOUTH EVERY DAY SOLD: 04/22/2021 [facility] Rosuvastatin calcium 40 MG Oral Tablet ROSUVASTATIN CALCIUM 01/20/2021 12:00:00 AM EDT tablet 30 TAKE ONE TABLET BY MOUTH MELANIE RY DAY TAKE ONE TABLET BY MOUTH EVERY DAY SOLD: 01/23/2021 [facility] Rosuvastatin calcium 40 MG Oral Tablet ROSUVASTATIN CALCIUM 01/20/2021 12:00:00 AM EDT tablet 30 TAKE ONE TABLET BY MOUTH MELANIE RY DAY TAKE ONE TABLET BY MOUTH EVERY DAY SOLD: 04/22/2021 [facility] Rosuvastatin calcium 40 MG Oral Tablet ROSUVASTATIN CALCIUM 01/20/2021 12:00:00 AM EDT tablet 30 TAKE ONE TABLET BY MOUTH MELANIE RY DAY TAKE ONE TABLET BY MOUTH EVERY DAY SOLD: 03/25/2021 [facility] Rosuvastatin calcium 40 MG Oral Tablet ROSUVASTATIN CALCIUM 01/20/2021 12:00:00 AM EDT tablet 30 TAKE ONE TABLET BY MOUTH MELANIE RY DAY TAKE ONE TABLET BY MOUTH EVERY DAY SOLD: 02/22/2021 [facility] 50 mg 01/20/2021 12:00:00 AM EDT tablet extended release 24 hr 30 TAKE ONE TABLET BY MOUTH EVERY DAY TAKE ONE TABLET BY MOUTH EVERY DAY SOLD: 05/29/2021 [facility] Rosuvastatin calcium 40 MG Oral Tablet ROSUVASTATIN CALCIUM 01/20/2021 12:00:00 AM EDT tablet 30 TAKE ONE TABLET BY MOUTH MELANIE DAY TAKE ONE TABLET BY MOUTH EVERY DAY SOLD: 06/26/2021 [facility] 25 mg 09/17/2020 12:00:00 AM EST tablet 30 TAKE ONE TABLET BY MOUTH EVERY DAY TAKE ONE TABLET BY MOUTH EVERY DAY SOLD: 09/18/2020 [facility] 25 mg 09/17/2020 12:00:00 AM EST tablet 30 TAKE ONE TABLET BY MOUTH EVERY DAY TAKE ONE TABLET BY MOUTH EVERY DAY SOLD: 12/13/2020 [facility] 25 mg 09/17/2020 12:00:00 AM EST tablet 30 TAKE ONE TABLET BY MOUTH EVERY DAY TAKE ONE TABLET BY MOUTH EVERY DAY SOLD: 10/16/2020 [facility] 25 mg 09/17/2020 12:00:00 AM EST tablet 30 TAKE ONE TABLET BY MOUTH EVERY DAY TAKE ONE TABLET BY MOUTH EVERY DAY SOLD: 11/19/2020 [facility] Rosuvastatin calcium 40 MG Oral Tablet ROSUVASTATIN CALCIUM 09/17/2020 12:00:00 AM EST tablet 30 TAKE ONE TABLET BY MOUTH MELANIE DAY TAKE ONE TABLET BY MOUTH EVERY DAY SOLD: 09/18/2020 [facility] Rosuvastatin calcium 40 MG Oral Tablet ROSUVASTATIN CALCIUM 09/17/2020 12:00:00 AM EST tablet 30 TAKE ONE TABLET BY MOUTH MELANIE DAY TAKE ONE TABLET BY MOUTH EVERY DAY SOLD: 12/13/2020 [facility] Rosuvastatin calcium 40 MG Oral Tablet ROSUVASTATIN CALCIUM 09/17/2020 12:00:00 AM EST tablet 30 TAKE ONE TABLET BY MOUTH MELANIE RY DAY TAKE ONE TABLET BY MOUTH EVERY DAY SOLD: 11/19/2020 [facility] Rosuvastatin calcium 40 MG Oral Tablet ROSUVASTATIN CALCIUM 09/17/2020 12:00:00 AM EST tablet 30 TAKE ONE TABLET BY MOUTH MELANIE TAKE ONE TABLET BY MOUTH EVERY DAY SOLD: 10/16/2020 [facility] 50 mg 07/14/2020 12:00:00 AM EDT tablet extended release 24 hr 30 TAKE ONE TABLET BY MOUTH EVERY DAY TAKE ONE TABLET BY MOUTH EVERY DAY SOLD: 09/18/2020 [facility] 50 mg 07/14/2020 12:00:00 AM EDT tablet extended release 24 hr 30 TAKE ONE TABLET BY MOUTH EVERY DAY TAKE ONE TABLET BY MOUTH EVERY DAY SOLD: 08/16/2020 [facility] 50 mg 07/14/2020 12:00:00 AM EDT tablet extended release 24 hr 30 TAKE ONE TABLET BY MOUTH EVERY DAY TAKE ONE TABLET BY MOUTH EVERY DAY SOLD: 12/13/2020 [facility] 50 mg 07/14/2020 12:00:00 AM EDT tablet extended release 24 hr 30 TAKE ONE TABLET BY MOUTH EVERY DAY TAKE ONE TABLET BY MOUTH EVERY DAY SOLD: 11/19/2020 [facility] 50 mg 07/14/2020 12:00:00 AM EDT tablet extended release 24 hr 30 TAKE ONE TABLET BY MOUTH EVERY DAY TAKE ONE TABLET BY MOUTH EVERY DAY SOLD: 10/16/2020 [facility] 50 mg 07/14/2020 12:00:00 AM EDT tablet extended release 24 hr 30 TAKE ONE TABLET BY MOUTH EVERY DAY TAKE ONE TABLET BY MOUTH EVERY DAY SOLD: 07/14/2020 [facility] 25 mg 05/09/2020 12:00:00 AM EDT tablet 30 TAKE ONE TABLET BY MOUTH EVERY DAY TAKE ONE TABLET BY MOUTH EVERY DAY SOLD: 07/14/2020 [facility] 25 mg 05/09/2020 12:00:00 AM EDT tablet 30 TAKE ONE TABLET BY MOUTH EVERY DAY TAKE ONE TABLET BY MOUTH EVERY DAY SOLD: 08/16/2020 [facility] Losartan Potassium 25 MG Oral Tablet LOSARTAN POTASSIUM 12:00:00 AM EDT tablet 30 TAKE ONE TABLET BY MOUTH MELANIE TAKE ONE TABLET BY MOUTH EVERY DAY SOLD: 06/12/2020 [facility] 75 mg 04/30/2020 12:00:00 AM EDT tablet 30 TAKE ONE TABLET BY MOUTH EVERY DAY TAKE ONE TABLET BY MOUTH EVERY DAY SOLD: 08/05/2020 [facility] 75 mg 04/30/2020 12:00:00 AM EDT tablet 30 TAKE ONE TABLET BY MOUTH EVERY DAY TAKE ONE TABLET BY MOUTH EVERY DAY SOLD: 07/06/2020 [facility] 75 mg 04/30/2020 12:00:00 AM EDT tablet 30 TAKE ONE TABLET BY MOUTH EVERY DAY TAKE ONE TABLET BY MOUTH EVERY DAY SOLD: 05/31/2020 [facility] 50 mg 01/11/2020 12:00:00 AM EDT tablet extended release 24 hr 30 TAKE ONE TABLET BY MOUTH EVERY DAY TAKE ONE TABLET BY MOUTH EVERY DAY SOLD: 06/12/2020 [facility] Rosuvastatin calcium 40 MG Oral Tablet ROSUVASTATIN CALCIUM 09/09/2019 12:00:00 AM EST tablet 30 TAKE ONE TABLET BY MOUTH MELANIE DAY TAKE ONE TABLET BY MOUTH EVERY DAY SOLD: 07/14/2020 [facility] clopidogrel 75 MG Oral Tablet clopidogrel (PLAVIX) 75 MG tablet clopidogrel (PLAVIX) 75 MG tablet 09/09/2019 12:00:00 AM EST 75 mg Oral aborted Take 1 tablet (75 mg total) by mouth daily [facility] Rosuvastatin calcium 40 MG Oral Tablet ROSUVASTATIN CALCIUM 09/09/2019 12:00:00 AM EST tablet 30 TAKE ONE TABLET BY MOUTH MELANIE DAY TAKE ONE TABLET BY MOUTH EVERY DAY SOLD: 08/16/2020 [facility] Rosuvastatin calcium 40 MG Oral Tablet ROSUVASTATIN CALCIUM 09/09/2019 12:00:00 AM EST tablet 30 TAKE ONE TABLET BY MOUTH MELANIE RY DAY TAKE ONE TABLET BY MOUTH EVERY DAY SOLD: 06/12/2020 [facility] Insurance Providers Payer name Policy type / Coverage type Policy ID Covered constitution party ID Covered constitution party's relationship to mahoney Policy Mahoney Plan Information [employer] [id number] [facility] [id number] [facility] [id number] [facility] [id number] [phone] [id number] [employer] (pr) Commercial [id number] Self [id number] [employer] (pr) Medigap Part B [id number] Self [id number] [employer] (pr) Medigap Part B [id number] Self [id number] [employer] (pr) Medigap Part B [id number] Self [id number] [employer] (pr) Medigap Part B [id number] Self [id number] [employer] Commercial [id number] Self [id number] ANSI-Commercial [id number] [employer]mr (pr) Commercial [id number] Self [id number] [facility] [id number] Self [id number] ANSI-Commercial [id number] [employer] [id number] SP [id number] [employer] Commercial [id number] Self [id number] [employer] Maintenance [employer] (HMO) [id number] Self [employer] PPO P [id number] S [id number] UMR [facility] C[facility] [id number] SP [id number] [employer] COMM SELF [id number] S [id number] [facility]MR [facility] [id number] SP [id number] UMR F [id number] SELF [id number] UMR [id number] S [id number] UMR O [id number] S [id number] UMR O [id number] S [id number] [employer] Other 0 [id number] Self 0 [employer] Other 0 [id number] Self 0 ANSI-Commercial [id number] Problems, Conditions, and Diagnoses Code Display Name Description Problem Type Effective Dates Data Source(s) E78.5 Hyperlipidemia, unspecified Hyperlipidemia, unspecifie d Diagnosis 03/29/2021 09:34:52 AM EDT [facility] I10 Essential (primary) hypertension Essential (primary) h ypertension Diagnosis 03/29/2021 09:34:52 AM EDT [facility] Z68.41 Body mass index (BMI) 40.0-44.9, adult B carmen mass index (BMI)40.0-44.9, adult Diagnosis 03/29/2021 09:34:52 AM EDT [facility] E66.01 Morbid (severe) obesity due to excess ca lories Morbid (severe) obesity due to excess ca Diagnosis 03/29/2021 09:34:52 AM EDT [facility] Z98.61 Coronary angioplasty status Coronary angioplasty statu s Diagnosis 03/29/2021 09:34:52 AM EDT [facility] I25.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 Atherosclerotic heart disease of [place] Diagnosis 03/29/2021 09:34:52 AM EDT [facility] Z86.010 [id number] History of colon polyps Problem 03/28/2021 1 2:00:00 AM EDT eCW1 ([facility]) G56.02 [id number] Left carpal tunnel syndrome Problem 09/23/2020 12:00:00 AM EST eCW1 ([facility]) Surgeries/Procedures Procedure Description Date Indications Data Source(s) OFFICE OUTPATIENT NEW 30 MINUTES 05/19/2021 12:00:00 A M EDT [facility] ([facility]) RADIOLOGIC EXAM KNEE COMPLETE 4/MORE VIEWS 01/03/2021 12:00:00 AM EDT [facility] ([facility] ) ECG ROUTINE ECG W/LEAST 12 LDS W/I&R <td>POCT AMB EKG</td><td>Routine</td><td>08/31/2020 1:39 PM EST</td><td> CAD S/P percutaneous coronary angioplasty</td><td> </td> 08/31/2020 06:39:00 PM EST CAD S/P percutaneous coronary angioplasty [facility] CAD S/P percutaneous coronary angioplast y Results ID Date Data Source [id number] 02/03/2021 07:48:47 PM EDT [facility] PCName: Jordan ByrdDOB: 2Provider: Lore Landon: 02/03/2021 Reason For Visit<OBX.5.1><OBX.5.1.1>Jordan Byrd is here today for Left Ankle </OBX.5.1.1><OBX.5.1.2> Foot. Jordan had his second Covid vaccine on 10/28/2020. Jordan Byrd is a new patient and Jordan Byrd is here for a second opinion. Patient states that he went [facility] and they did a doppler which was negative but no other treatment. He states that since 08/2020 he has had left foot and ankle barron. He states that he did yoga but doesn't recall a specific injury. </OBX.5.1.2></OBX.5.1>(Principal ). Patient is working at this time at regular duty. Results/DataXRays were ordered, obtained and interpreted today in the office. Indication: pain/dysfunction. Side: Left Site: Ankle and Foot Views: 2 Views, AP/Mortise, 3 Views AP/Lateral/Internal Oblique Findings: no new fractures or dislocations, the joint remains reduced, No signs of charcot, deformity or event. LEft knee 3v ap lateral sunrise show no fx or dislocation Assessment 1. Left foot pain (729.5) (M79.672) Plan<OBX.5.1><OBX.5.1.1> 1. X-Ray I Ankle 2 Views </OBX.5.1.1><OBX.5.1.2> Foot 3 Views (XRays were ordered, obtained and interpreted</OBX.5.1.2></OBX.5.1> today in the office. Indication: pain/dysfunction.); Status:Complete; Done: 03Feb2021 Perform:SOS22; Due:17Feb2021; Last Updated By:Daryl Pruitt; 02/03/2021 9:59:44 AM;Ordered; For:Left ankle pain, Left foot pain; Ordered By:Freddie Landon;Laterality: : Left 2. X-Ray I Knee - 3 views (XRays were ordered, obtained and interpreted today in the office. Indication: pain/dysfunction.); Status:Complete; Done: 03Feb2021 Perform:SOS22; Due:17Feb2021; Last Updated By:Gertrude Frey; 02/03/2021 10:33:23 AM;Ordered; For:Left knee pain; Ordered By:Freddie Landon;Weight Bearing Status : Weight bearingLaterality: : Left 3. Physical Therapy (SOS) - Home Exercise Program Treatment Evaluation Status: Complete Done: 03Feb2021 Ordered;For: Left knee pain; Ordered By: Freddie Landon Performed: Order Comments: Patellar Cruz's Cyst. ROM, Modalities, Quad extensions. Due: 17Feb2021; Last Updated By: Iman Jordan; 02/03/2021 11:17:03 AMPT Location Preference : PT Outside of [facility] Protocol : Evaluate and treat as indicated, per protocol or as previously written.PT HEP Edu (1 - 3 visits) : 2-3 visits for home exercise educationLaterality and Body Part: : Left knee AssessmentLeft medial knee pain, Cruz cyst, likely degenerative meniscal tearLeft anterior ankle pain, mid foot pain, likely primary arthritis exacerbationBilateral, left greater than right dependent edema/venous insufficiencyPlanProblems, for about a month or 6 weeks. Insidious onset. He has trouble with his knee. He has trouble with his ankle and foot. He has problems with both spots. His left knee bothers him more. Aching and throbbing, sharp, medial, posterior medial, worse with exercise, deep flexion. Better with rest, sedentary activity. Not getting better. Anti-inflammatories haven't helped.Foot pain, ankle pain, mild to moderate. Worse on start up. Once he gets moving, it doesn't bother him much at all. It sounds mildly arthritic.I specifically looked at x-rays of his knee, ankle, and foot. No evidence of fracture or dislocation. Foot and ankle x-rays are benign. Perhaps a touch of primary arthritis. Knee x-rays demonstrate slight medial joint space narrowing but minimal.He had an ultrasound done. It showed a Cruz's cyst.I discussed with him that he likely has a degenerative meniscal tear, and a Cruz's cyst, as a result, and it's flared up. I discussed physical therapy for range of motion, modality work.Routine elevation for the dependent edema.I discussed a cortisone shot for his ankle. However, his knee hurts him more. Therefore I injected his knee.I advised him that steroid injections are frequently used to provide relief from musculoskeletal pain and to aid in the diagnosis of musculoskeletal problems. This injection offers a variety of benefits and various potential risks associated the medication administered during the injection. I informed him that alternatives to this injection include no treatment, use of rehabilitation and exercise, use of a different medication (oral and injectable), and surgical intervention, when appropriate. I advised him that the risks associated with this injection include: an allergic reaction to the medication, pain at the injection site, possible infection of the injection site, facial flushing and skin changes, temporary increase in blood sugar, tendon, muscle or nerve injury, avascular necrosis, and that there may actually not be a beneficial effect at all. Having discussed benefits, alternatives, and potential risks to the injection, he elected to proceed with the procedure.I injected his knee, from a parapatellar injection portal with 2 cc of 0.5% Marcaine and 1 ml of 80 mg/mL Depo-Medrol.He is going to follow up as needed. If it's getting better he can f ollow-up as needed. If it's getting worse, I can see him for his knee or his foot. He probably need an MRI of this knee.He understood our conversation, asked appropriate questions, illustrated understanding of our discussion, understood recommendations for treatment, and understood associated risks and benefits. Signatures Electronically signed by : Freddie Landon M.D.; Feb 03 2021 7:47PM EST (Author) Electronically signed by : Freddie Landon M.D.; Feb 03 2021 7:48PM EST (Author) Name Value Range Interpretation Code Description Data Radha rce(s) Supporting Document(s) ID Date Data Source [id number] 06/04/2020 10:51:00 AM EDT [facility] ([facility]) Name Value Range Interpretation Code Description Data Radha rce(s) Supporting Document(s) Laboratory test finding (navigational concept) Laboratory test result [facility] ([facility]) Procedure Social History Code Duration Value Status Description Data Source(s ) Smoking 03/28/2021 12:00:00 AM EDT Former Smoker completed Former Smoker eC ([facility]) Smoking 03/28/2021 12:00:00 AM EDT Former Smoker completed Former Smoker eC ([facility]) Smoking 10/12/2020 12:00:00 AM EST Patient is a former smoker completed Patient is a former smoker [facility] ([facility], ) Smoking 09/23/2020 12:00:00 AM EST Former Smoker completed Former Smoker eC ([facility]) Vital Signs ID Date Data Source UNK Name Value Range Interpretation Code Description Data Source(s) Heart rate 64 /min 64 /min [facility] ([facility]) Body height 69 [in_i] 69 [in_i] [facility] 5'9" Body weight 268.00 [lb_av] 268.00 [lb_av] MEDEN T ([facility]) Systolic blood pressure 151 mm[Hg] 151 mm[Hg] M EDENT ([facility]) Diastolic blood pressure 92 mm[Hg] 92 mm[Hg] [facility] ([facility]) Body mass index (BMI) [Ratio] 39.6 kg/m2 39.6 k g/m2 [facility] ([facility]) Body weight 121.565 kg 121.565 kg [facility] ([facility]) Body temperature 97.2 [degF] 97.2 [degF] [facility] ([facility]) Body weight 266.8 [lb_av] 266.8 [lb_av] eCW1 ([facility]) Body height [in_i] eCW1 ([facility]) Body mass index (BMI) [Ratio] 39.97 kg/m2 39.97 kg/m2 eCW1 ([facility]) Heart rate 77 /min 77 /min eCW1 ([facility]) Respiratory rate 18 /min 18 /min eCW1 ([facility] hospital) Body temperature 97.4 [degF] 97.4 [degF] eCW1 ( [facility]) Systolic blood pressure 159 mm[Hg] 159 mm[Hg] e CW1 ([facility]) Diastolic blood pressure 88 mm[Hg] 88 mm[Hg] eCW1 ([facility]) Body temperature 97.7 [degF] 97.7 [degF] [facility] ([facility] ) Body height 67.5 [in_i] 67.5 [in_i] [facility] ([facility] ) 5'7.50" Body weight 275.12 [lb_av] 275.12 [lb_av] MEDEN T ([facility] ) Body mass index (BMI) [Ratio] 42.5 kg/m2 42.5 k g/m2 [facility] ([facility] ) Systolic blood pressure 124 mm[Hg] 124 mm[Hg] M EDENT ([facility], ) Diastolic blood pressure 84 mm[Hg] 84 mm[Hg] [facility] ([facility], ) Heart rate 79 /min 79 /min [facility] ([facility], ) Oxygen saturation in Arterial blood by Pulse oximetry 98 % 98 % [facility] ([facility], ) Room Air Body temperature 97.1 [degF] 97.1 [degF] [facility] ([facility], ) Body height 68 [in_i] 68 [in_i] MEDENT ([facility], ) 5'8" Body weight 283.00 [lb_av] 283.00 [lb_av] MEDEN T ([facility], ) Body mass index (BMI) [Ratio] 43.0 kg/m2 43.0 k g/m2 [facility] ([facility]) [place] body weight 154 [lb_av] 154 [lb_av] MEDEN T ([facility]) Body weight 128.369 kg 128.369 kg [facility] ([facility]) Body surface area Derived from formula 2.37 m2 2.37 m2 [facility] ([facility]) Body weight 285.12 [lb_av] 285.12 [lb_av] eCW1 ([facility]) Body height [in_i] eCW1 ([facility]) Body mass index (BMI) [Ratio] 42.72 kg/m2 42.72 kg/m2 eCW1 ([facility]) Heart rate 75 /min 75 /min W1 ([facility]) Respiratory rate 16 /min 16 /min eCW1 ([facility]) Body temperature 97.7 [degF] 97.7 [degF] eCW1 ( [facility]) Systolic blood pressure 160 mm[Hg] 160 mm[Hg] e CW1 ([facility]) Diastolic blood pressure 93 mm[Hg] 93 mm[Hg] eCW1 ([facility]) Body mass index (BMI) [Ratio] 42.63 kg/m2 42.63 kg/m2 [facility] Systolic blood pressure 130 mm[Hg] 130 mm[Hg] [facility] Diastolic blood pressure 90 mm[Hg] 90 mm[Hg] [facility] Heart rate 70 /min 70 /min [facility] Body height 172.7 cm 172.7 cm [facility] Body weight 127.189 kg 127.189 kg [facility] Oxygen saturation in Arterial blood by Pulse oximetry 97 % 97 % [facility] Body temperature 97.5 [degF] 97.5 [degF] [facility] ([facility] ) Body height 68 [in_i] 68 [in_i] [facility] ([facility] ) 5'8" Body weight 272.00 [lb_av] 272.00 [lb_av] NARDA Mejia ([facility]) Body mass index (BMI) [Ratio] 41.4 kg/m2 41.4 k g/m2 JITENDRA ([facility]) Patient Treatment Plan of Care Planned Activity Planned Date Details Description Data Source (s) clopidogrel 75 MG Oral Tablet 09/09/2019 12:00:00 AM [facility]
[2021-07-25] MEDS ORDERED: propofoL 200 MG/20 ML VIAL As Ordered ONE (08:44)
[2021-07-25] MEDS ORDERED: LIDOCAINE 2% 100MG/5ML SDV (FOR ANES.) As Ordered ONE (08:44)
--- NOTE | 2021-07-25 09:37 | ROOR ---
Patient Name: Fei Byrd Procedure Date: 07/25/2021 9:18 AM Date of : 1960 Age: 60 Room: [facility] Gender: Male Note Status: Finalized Procedure: Total Colonoscopy to Cecum Indications: High risk colon cancer surveillance: Personal history of colonic polyps, Last colonoscopy: 2014 Providers: Ishmael Love MD Referring MD: RODGER CALVERT DO Requesting Provider: Medicines: Monitored Anesthesia Care Complications: No immediate complications. Procedure: Pre-Anesthesia Assessment: - The heart rate, respiratory rate, oxygen saturations, blood pressure, adequacy of pulmonary ventilation, and response to care were monitored throughout the procedure. The Colonoscope was introduced through the anus and advanced to the cecum, identified by appendiceal orifice and ileocecal valve. The colonoscopy was performed without difficulty. The patient tolerated the procedure well. The quality of the bowel preparation was good. Findings: The perianal and digital rectal examinations were normal. Non-bleeding internal hemorrhoids were found during retroflexion. The hemorrhoids were small and Grade I (internal hemorrhoids that do not prolapse). Scattered small-mouthed diverticula were found in the recto-sigmoid colon, sigmoid colon and descending colon. The exam was otherwise without abnormality on direct and retroflexion views. Impression: - Non-bleeding internal hemorrhoids. - Diverticulosis in the recto-sigmoid colon, in the sigmoid colon and in the descending colon. - The examination was otherwise normal on direct and retroflexion views. - No specimens collected. - The exam was otherwise normal to the cecum. Recommendation: - Patient has a contact number available for emergencies. The signs and symptoms of potential delayed complications were discussed with the patient. Return to normal activities tomorrow. Written discharge instructions were provided to the patient. - High fiber diet. - Discharge patient to home. - Continue present medications. - Repeat colonoscopy in 5 years for surveillance. - Return to referring physician. - The findings and recommendations were discussed with the patient. Procedure Code(s): --- Professional --- G0105, Colorectal cancer screening; colonoscopy on individual at high risk Diagnosis Code(s): --- Professional --- Z86.010, Personal history of colonic polyps K64.0, First degree hemorrhoids K57.30, Diverticulosis of large intestine without perforation or abscess without bleeding CPT copyright 2019 [employer]. All rights reserved. The codes documented in this report are preliminary and upon it operations analyst review may be revised to meet current compliance requirements. Ishmael Love MD Ishmael Love MD 07/25/2021 9:37:07 AM Electronically signed by Ishmael Love MD Number of Addenda: 0 Note Initiated On: 07/25/2021 9:18 AM Estimated Blood Loss: Estimated blood loss: none.
[2021-07-25 09:55] VITALS: BP 160/91
== END 2021-07-25 10:14 | disposition home or self-care (01) ==
LOC: M OPP 08:25
PROVIDERS: ATTEND Internal Medicine Gastroenterology
DX: K57.30 Diverticulosis of large intestine without perforation or abscess without bleeding (principal); K64.0 First degree hemorrhoids; Z86.010 Personal history of colon polyps; Z12.11 Encounter for screening for malignant neoplasm of colon

== ENCOUNTER → 2022-04-03 | Outpatient (REF) | payer OTHER ==
[~2022-04-03] MED LIST changes: +LOSA25TA13 PO; -LOSA25TA14 PO; -NS 1,000 ML IV ONE
[2022-04-03 16:40] LABS: ALBUMIN 3.5 GM/DL (3.2-5.2); ALT/SGPT 33 U/L (12-78); BILIRUBIN,TOTAL 0.4 MG/DL (0.2-1.0); BLOOD UREA NITROGEN 11 MG/DL (7-18); CALCIUM LEVEL 8.9 MG/DL (8.5-10.1); CARBON DIOXIDE LEVEL 26 MEQ/L (21-32); CHLORIDE LEVEL 109 MEQ/L (98-107); CHOLESTEROL LEVEL 137 MG/DL (<200); CHOLESTEROL RISK RATIO 3.261 (<5); CREATININE FOR GFR 0.79 MG/DL (0.70-1.30); GLOMERULAR FILTRATION RATE > 60.0 (>56); GLUCOSE, FASTING 123 MG/DL (70-100); HDL CHOLESTEROL 42 MG/DL (>40); LDL CHOLESTEROL 47 MG/DL (<100); NON-HDL-C 95 MG/DL; POTASSIUM SERUM 4.1 MEQ/L (3.5-5.1); SODIUM LEVEL 142 MEQ/L (136-145); TOTAL PROTEIN 6.5 GM/DL (6.4-8.2); TRIGLYCERIDES LEVEL 241 MG/DL (<150)
[2022-04-03 16:59] LABS: HEMOGLOBIN A1c 6.1 %
== END ==
LOC: M SFHCCLAY 13:23
PROVIDERS: ATTEND Family Medicine
DX: E78.5 Hyperlipidemia, unspecified (principal); R73.01 Impaired fasting glucose

== ENCOUNTER → 2022-05-01 | Outpatient (CLI) | payer OTHER | LOC: M RAD 07:44 | PROVIDERS: ATTEND Family Medicine | DX: R43.9 Unspecified disturbances of smell and taste (principal) ==

== ENCOUNTER → 2022-05-08 | Outpatient (CLI) | payer OTHER | LOC: M SOG 09:10 | PROVIDERS: ATTEND Physician Assistant | DX: G56.02 Carpal tunnel syndrome, left upper limb (principal) ==

== ENCOUNTER → 2022-07-25 | Outpatient (CLI) | payer OTHER ==
[~2022-07-25] MED LIST changes: +VALS1TAB66 PO
== END ==
LOC: M LABSMTC 10:36
PROVIDERS: ATTEND Anesthesiology
DX: Z01.818 Encounter for other preprocedural examination (principal); Z11.52 Encounter for screening for COVID-19

== ENCOUNTER 2022-07-28 08:53 | Day surgery (SDC) | payer OTHER ==
[~2022-07-28] VITALS: Ht 175.3 cm; Wt 123.8 kg
[2022-07-28] MEDS ORDERED: LR 1,000 ML IV SCH ×2 (09:30→11:10)
[2022-07-28] MEDS ORDERED: BACITRACIN OINTMENT 30GM TUBE As Ordered ONE (10:16)
[2022-07-28] MEDS ORDERED: BUPIVACAINE HCL 0.25% 30ML VIAL As Ordered ONE (10:16)
[2022-07-28] MEDS ORDERED: LIDOCAINE W/EPINEPHRINE 1% 20ML VIAL As Ordered ONE (10:17)
[2022-07-28] MEDS ORDERED: ACETAMINOPHEN 1000MG 100ML IV BAG As Ordered ONE (10:43)
[2022-07-28] MEDS ORDERED: METOCLOPRAMIDE INJ 10MG/2ML VIAL (J2765 PER 1) As Ordered ONE (10:45)
[2022-07-28] MEDS ORDERED: MIDAZOLAM INJ 2MG/2ML VIAL (J2250 PER 1MG) As Ordered ONE (10:45)
[2022-07-28] MEDS ORDERED: dexameTHASONE 4 MG/ML 1ML VIAL (J1100 PER 1MG) As Ordered ONE (10:45)
[2022-07-28] MEDS ORDERED: LIDOCAINE 2% 100MG/5ML SDV (FOR ANES.) As Ordered ONE (10:45)
[2022-07-28] MEDS ORDERED: ONDANSETRON 4MG 2ML VIAL As Ordered ONE (10:45)
[2022-07-28] MEDS ORDERED: propofoL 200 MG/20 ML VIAL As Ordered ONE ×2 (10:45→10:55)
[2022-07-28] MEDS ORDERED: fentaNYL 100 MCG/2 ML INJECTION As Ordered ONE (10:45)
[2022-07-28] MEDS ORDERED: fentaNYL 100 MCG/2 ML INJECTION IV PRN (11:10)
[2022-07-28] MEDS ORDERED: MORPHINE 2 MG/ML 1ML VIAL IV PRN (11:10)
[2022-07-28] MEDS ORDERED: ONDANSETRON 4MG 2ML VIAL IV PRN (11:10)
[2022-07-28] MEDS ORDERED: oxyCODONE 5MG TAB PO PRN (11:10)
[2022-07-28 12:20] VITALS: BP 164/91
== END 2022-07-28 12:55 | disposition home or self-care (01) ==
LOC: M SDC 08:53
PROVIDERS: ATTEND Orthopaedic Surgery Hand Surgery
DX: G56.02 Carpal tunnel syndrome, left upper limb (principal); I10 Essential (primary) hypertension; E78.5 Hyperlipidemia, unspecified; Z98.61 Coronary angioplasty status; G47.33 Obstructive sleep apnea (adult) (pediatric); Z88.0 Allergy status to penicillin; Z79.82 Long term (current) use of aspirin; Z79.899 Other long term (current) drug therapy
CPT/HCPCS: 29848; J0131; J1100; J2250; J2405; J2765; J3010

== ENCOUNTER → 2022-10-05 | Outpatient (REF) | payer OTHER ==
[2022-10-05 12:32] LABS: BASO % 0.6 % (0.0-1.0); EOS # 0.1 10^3/uL (0.0-0.5); EOS % 1.4 % (0.0-3.0); HEMATOCRIT 44.5 % (42.0-52.0); HEMOGLOBIN 14.6 g/dl (13.5-17.5); LYMPH # 2.7 10^3/uL (1.5-5.0); LYMPH % 37.3 % (24.0-44.0); MEAN CORPUSCULAR HEMOGLOBIN 28.6 pg (27.0-33.0); MEAN CORPUSCULAR HGB CONC 32.8 g/dl (32.0-36.5); MEAN CORPUSCULAR VOLUME 87.1 fl (80.0-96.0); MONO # 0.6 10^3/uL (0.0-0.8); MONO % 8.3 % (2.0-8.0); NEUTROPHILS # 3.8 10^3/uL (1.5-8.5); NEUTROPHILS % 51.4 % (36.0-66.0); PLATELET COUNT, AUTOMATED 201 10^3/uL (150-450); RED BLOOD COUNT 5.11 10^6/uL (4.30-6.10); WHITE BLOOD COUNT 7.3 10^3/uL (4.0-10.0)
[2022-10-05 13:01] LABS: ALBUMIN 3.8 G/DL (3.2-5.2); ALKALINE PHOSPHATASE 77 U/L (46-116); ALT/SGPT 36 U/L (7.0-40); AST/SGOT 19 U/L (<34); BILIRUBIN,TOTAL 0.4 MG/DL (0.3-1.2); BLOOD UREA NITROGEN 16 MG/DL (9-23); CALCIUM LEVEL 9.2 MG/DL (8.3-10.6); CARBON DIOXIDE LEVEL 29 MMOL/L (20-31); CHLORIDE LEVEL 106 MMOL/L (98-107); CHOLESTEROL LEVEL 133 MG/DL (<200); CHOLESTEROL RISK RATIO 3.49 (<5); CREATININE FOR GFR 0.87 MG/DL (0.70-1.30); GLOMERULAR FILTRATION RATE > 60.0 (>49); GLUCOSE, FASTING 132 MG/DL (74-106); HDL CHOLESTEROL 38.1 MG/DL (>40); LDL CHOLESTEROL 62.9 MG/DL (<100); NON-HDL-C 95 MG/DL; POTASSIUM SERUM 4.8 MMOL/L (3.5-5.1); SODIUM LEVEL 141 MMOL/L (136-145); TOTAL PROTEIN 6.4 G/DL (5.7-8.2); TRIGLYCERIDES LEVEL 160 MG/DL (<150)
[2022-10-05 13:08] LABS: HEMOGLOBIN A1c 5.9 % (4.0-6.0)
== END ==
LOC: M SFHCCLAY 07:03
PROVIDERS: ATTEND Family Medicine
DX: I10 Essential (primary) hypertension (principal); E78.5 Hyperlipidemia, unspecified; R73.01 Impaired fasting glucose

== ENCOUNTER → 2022-10-31 | Outpatient (REF) | payer OTHER ==
[2022-10-31 18:12] LABS: ALBUMIN 3.8 G/DL (3.2-5.2); ALKALINE PHOSPHATASE 78 U/L (46-116); ALT/SGPT 32 U/L (7.0-40); AST/SGOT < 8 U/L (<34); BILIRUBIN,DIRECT 0.2 MG/DL (<0.4); BILIRUBIN,TOTAL 0.4 MG/DL (0.3-1.2); TOTAL PROTEIN 6.5 G/DL (5.7-8.2)
== END ==
LOC: M LABDRAWC 16:59
PROVIDERS: ATTEND Nurse Practitioner Family
DX: B35.1 Tinea unguium (principal)

== ENCOUNTER → 2023-07-13 | Outpatient (REF) | payer OTHER ==
[2023-07-13 13:55] LABS: BASO % 0.5 % (0.0-1.0); EOS # 0.1 10^3/uL (0.0-0.5); EOS % 1.4 % (0.0-3.0); HEMATOCRIT 43.8 % (42.0-52.0); HEMOGLOBIN 14.8 g/dl (13.5-17.5); LYMPH % 35.1 % (24.0-44.0); MEAN CORPUSCULAR HEMOGLOBIN 29.2 pg (27.0-33.0); MEAN CORPUSCULAR HGB CONC 33.8 g/dl (32.0-36.5); MEAN CORPUSCULAR VOLUME 86.4 fl (80.0-96.0); MONO # 0.7 10^3/uL (0.0-0.8); MONO % 8.3 % (2.0-8.0); NEUTROPHILS # 4.6 10^3/uL (1.5-8.5); NEUTROPHILS % 54.3 % (36.0-66.0); PLATELET COUNT, AUTOMATED 226 10^3/uL (150-450); RED BLOOD COUNT 5.07 10^6/uL (4.30-6.10); WHITE BLOOD COUNT 8.5 10^3/uL (4.0-10.0)
[2023-07-13 14:05] LABS: ALBUMIN 3.7 G/DL (3.2-5.2); ALKALINE PHOSPHATASE 78 U/L (46-116); ALT/SGPT 37 U/L (7.0-40); AST/SGOT 17 U/L (<34); BILIRUBIN,TOTAL 0.4 MG/DL (0.3-1.2); BLOOD UREA NITROGEN 10 MG/DL (9-23); CALCIUM LEVEL 8.8 MG/DL (8.3-10.6); CARBON DIOXIDE LEVEL 26 MMOL/L (20-31); CHLORIDE LEVEL 103 MMOL/L (98-107); CREATININE FOR GFR 0.71 MG/DL (0.70-1.30); GLOMERULAR FILTRATION RATE > 60.0 (>49); GLUCOSE, FASTING 107 MG/DL (74-106); POTASSIUM SERUM 4.2 MMOL/L (3.5-5.1); SODIUM LEVEL 139 MMOL/L (136-145); TOTAL PROTEIN 6.4 G/DL (5.7-8.2)
[2023-07-13 14:19] LABS: HEMOGLOBIN A1c 5.6 % (4.0-6.0)
== END ==
LOC: M SFHCADAM 08:11
PROVIDERS: ATTEND Family Medicine
DX: I10 Essential (primary) hypertension (principal); R73.01 Impaired fasting glucose

== ENCOUNTER → 2023-11-13 | Outpatient (CLI) | payer OTHER | LOC: M RAD 08:04 | PROVIDERS: ATTEND Nurse Practitioner Family | DX: M79.662 Pain in left lower leg (principal) ==

== ENCOUNTER → 2023-12-27 | Outpatient (REF) | payer OTHER ==
[2023-12-27 14:08] LABS: HEMATOCRIT 43.4 % (42.0-52.0); HEMOGLOBIN 14.5 g/dl (13.5-17.5); MEAN CORPUSCULAR HEMOGLOBIN 29.2 pg (27.0-33.0); MEAN CORPUSCULAR HGB CONC 33.4 g/dl (32.0-36.5); MEAN CORPUSCULAR VOLUME 87.5 fl (80.0-96.0); PLATELET COUNT, AUTOMATED 219 10^3/uL (150-450); RED BLOOD COUNT 4.96 10^6/uL (4.30-6.10); WHITE BLOOD COUNT 8.1 10^3/uL (4.0-10.0)
[2023-12-27 14:13] LABS: ALBUMIN 3.7 G/DL (3.2-5.2); ALKALINE PHOSPHATASE 75 U/L (46-116); ALT/SGPT 30 U/L (7.0-40); AST/SGOT 13 U/L (<34); BILIRUBIN,TOTAL 0.3 MG/DL (0.3-1.2); BLOOD UREA NITROGEN 16 MG/DL (9-23); CARBON DIOXIDE LEVEL 30 MMOL/L (20-31); CHLORIDE LEVEL 107 MMOL/L (98-107); CHOLESTEROL LEVEL 112 MG/DL (<200); CHOLESTEROL RISK RATIO 2.77 (<5); CREATININE FOR GFR 0.76 MG/DL (0.70-1.30); GLOMERULAR FILTRATION RATE > 60.0 (>49); GLUCOSE, FASTING 108 MG/DL (74-106); HDL CHOLESTEROL 40.4 MG/DL (>40); LDL CHOLESTEROL 48.6 MG/DL (<100); NON-HDL-C 71.6 MG/DL; POTASSIUM SERUM 4.5 MMOL/L (3.5-5.1); SODIUM LEVEL 141 MMOL/L (136-145); TOTAL PROTEIN 6.4 G/DL (5.7-8.2); TRIGLYCERIDES LEVEL 115 MG/DL (<150)
[2023-12-27 14:31] LABS: HEMOGLOBIN A1c 5.6 % (4.0-6.0)
== END ==
LOC: M SFHCADAM 08:20
PROVIDERS: ATTEND Family Medicine
DX: I10 Essential (primary) hypertension (principal); R73.01 Impaired fasting glucose; E78.5 Hyperlipidemia, unspecified; I25.10 Atherosclerotic heart disease of native coronary artery without angina pectoris

== ENCOUNTER → 2024-06-23 | Outpatient (REF) | payer OTHER ==
[~2024-06-23] MED LIST changes: -ROSU40TA4 PO; +ROSU40TA81 PO; -VITA500C19 PO; +VITA500C22 PO
[2024-06-23 13:46] LABS: PSA SCREENING 0.63 NG/ML (< 4.00)
[2024-06-23 13:49] LABS: ALBUMIN 3.7 G/DL (3.2-5.2); ALKALINE PHOSPHATASE 80 U/L (46-116); ALT/SGPT 27 U/L (7.0-40); AST/SGOT 12 U/L (<34); BILIRUBIN,TOTAL 0.5 MG/DL (0.3-1.2); BLOOD UREA NITROGEN 17 MG/DL (9-23); CALCIUM LEVEL 8.9 MG/DL (8.3-10.6); CARBON DIOXIDE LEVEL 27 MMOL/L (20-31); CHLORIDE LEVEL 107 MMOL/L (98-107); CREATININE FOR GFR 0.81 MG/DL (0.70-1.30); GLOMERULAR FILTRATION RATE > 60.0 (>49); GLUCOSE, FASTING 131 MG/DL (74-106); POTASSIUM SERUM 4.2 MMOL/L (3.5-5.1); SODIUM LEVEL 142 MMOL/L (136-145); TOTAL PROTEIN 6.7 G/DL (5.7-8.2)
[2024-06-23 14:03] LABS: HEMOGLOBIN A1c 5.8 % (4.0-6.0)
== END ==
LOC: M SFHCADAM 08:23
PROVIDERS: ATTEND Family Medicine
DX: R73.01 Impaired fasting glucose (principal); Z12.5 Encounter for screening for malignant neoplasm of prostate

== ENCOUNTER → 2024-07-11 | Outpatient (REF) | payer OTHER | LOC: M SFHCADAM 09:10 | DX: R19.7 Diarrhea, unspecified (principal); K92.1 Melena ==

== ENCOUNTER → 2024-07-11 | Outpatient (CLI) | payer OTHER ==
[2024-07-11 13:03] LABS: HEMATOCRIT 40.9 % (42.0-52.0); HEMOGLOBIN 13.7 g/dl (13.5-17.5); MEAN CORPUSCULAR HGB CONC 33.5 g/dl (32.0-36.5); MEAN CORPUSCULAR VOLUME 86.5 fl (80.0-96.0); PLATELET COUNT, AUTOMATED 252 10^3/uL (150-450); RED BLOOD COUNT 4.73 10^6/uL (4.30-6.10); WHITE BLOOD COUNT 7.7 10^3/uL (4.0-10.0)
[2024-07-11 13:09] LABS: ALBUMIN 3.1 G/DL (3.2-5.2); ALKALINE PHOSPHATASE 65 U/L (40-129); ALT/SGPT 27 U/L (7.0-40); AST/SGOT 10 U/L (<34); BILIRUBIN,TOTAL 0.5 MG/DL (0.3-1.2); BLOOD UREA NITROGEN 13 MG/DL (9-23); CALCIUM LEVEL 9.1 MG/DL (8.3-10.6); CARBON DIOXIDE LEVEL 29 MMOL/L (20-31); CHLORIDE LEVEL 106 MMOL/L (98-107); CREATININE FOR GFR 0.86 MG/DL (0.70-1.30); GLOMERULAR FILTRATION RATE > 60.0 (>49); GLUCOSE, FASTING 111 MG/DL (74-106); POTASSIUM SERUM 3.8 MMOL/L (3.5-5.1); SODIUM LEVEL 141 MMOL/L (136-145); TOTAL PROTEIN 6.2 G/DL (5.7-8.2)
== END ==
LOC: M PLALAB 09:36
DX: R19.7 Diarrhea, unspecified (principal); K92.1 Melena

== ENCOUNTER → 2024-12-23 | Outpatient (REF) | payer OTHER ==
[2024-12-23 19:27] LABS: ALBUMIN 4.1 G/DL (3.2-5.2); ALKALINE PHOSPHATASE 85 U/L (40-129); ALT/SGPT 32 U/L (7.0-40); AST/SGOT 19 U/L (<34); BILIRUBIN,TOTAL 0.4 MG/DL (0.3-1.2); BLOOD UREA NITROGEN 14 MG/DL (9-23); CALCIUM LEVEL 8.7 MG/DL (8.3-10.6); CARBON DIOXIDE LEVEL 29 MMOL/L (20-31); CHLORIDE LEVEL 104 MMOL/L (98-107); CHOLESTEROL LEVEL 134 MG/DL (<200); CHOLESTEROL RISK RATIO 3.65 (<5); CREATININE FOR GFR 0.79 MG/DL (0.70-1.30); GLOMERULAR FILTRATION RATE > 60.0 (>49); GLUCOSE, FASTING 127 MG/DL (74-106); HDL CHOLESTEROL 36.7 MG/DL (>40); LDL CHOLESTEROL 69.5 MG/DL (<100); NON-HDL-C 97.3 MG/DL; POTASSIUM SERUM 3.8 MMOL/L (3.5-5.1); SODIUM LEVEL 141 MMOL/L (136-145); TOTAL PROTEIN 6.8 G/DL (5.7-8.2); TRIGLYCERIDES LEVEL 139 MG/DL (<150)
[2024-12-23 19:50] LABS: HEMOGLOBIN A1c 6.1 % (4.0-6.0)
== END ==
LOC: M SFHCCAPE 07:52
PROVIDERS: ATTEND Family Medicine
DX: R73.01 Impaired fasting glucose (principal); E78.5 Hyperlipidemia, unspecified; I25.10 Atherosclerotic heart disease of native coronary artery without angina pectoris

== ENCOUNTER → 2025-06-30 | Outpatient (REF) | payer OTHER ==
[2025-06-30 18:03] LABS: ALT/SGPT 28 U/L (7.0-40); AST/SGOT 22 U/L (<34); CALCIUM LEVEL 8.8 MG/DL (8.3-10.6); CARBON DIOXIDE LEVEL 28 MMOL/L (20-31); CHLORIDE LEVEL 105 MMOL/L (98-107); CREATININE FOR GFR 0.91 MG/DL (0.70-1.30); GLOMERULAR FILTRATION RATE > 90.0 (>49); POTASSIUM SERUM 4.2 MMOL/L (3.5-5.1); SODIUM LEVEL 143 MMOL/L (136-145)
[2025-06-30 18:32] LABS: ESTIMATED AVERAGE GLUCOSE 128.0 MG/DL (60-110)
== END ==
LOC: M SFHCCAPE 07:30
PROVIDERS: ATTEND Family Medicine
DX: R73.01 Impaired fasting glucose (principal); I10 Essential (primary) hypertension